=== PATIENT | female | born 2000 | race Two or more races ===

== ENCOUNTER 2024-10-14 08:53 | Inpatient (IN) | payer OTHER ==
[~2024-10-14] VITALS: Ht 177.8 cm; Wt 84.4 kg
--- NOTE | 2024-10-14 09:40 | NUR ---
PACIENTE ALERTA Y ORIENTADA X3 LA MISMA REFIERE DOLOR ABDOMINAL YA QUE KATYA REFIERE TENER BHAVYA HERNIA ABDOMINAL. S/V ESTABLES AL MOMENTO. PACIENTE EN ESPERA DE EVALUACION MEDICA.
[2024-10-14] MEDS ORDERED: 0.9 % SODIUM CHLORIDE 1,000 ML IV ONE (12:00)
--- NOTE | 2024-10-14 13:06 | NUR ---
SOUMYA ROJAS EDUCA ACERCA DE TX ORDENADO Y REFIERE ENTENDER. SE CANALIZA Y COLECTAN MUESTRAS DE LABORATORIO MEDIANTE MEDIDAS ASEPTICAS.
[2024-10-14 13:12] LABS: BASO % 0.5 % (0.1-1.2); EOS # 0.13 (0.04-0.54); EOS % 2.4 % (0.7-7.0); LYMPH # 1.47 (1.18-3.74); LYMPH % 26.8 % (19.3-53.1); MEAN PLATELET VOLUME 10.30 fl (9.4-12.4); MONO # 0.39 (0.24-0.82); MONO % 7.1 % (4.7-12.5); NEUT # 3.45 (1.56-6.13); NEUT % 63.0 % (34.0-71.1); RED CELL DISTRIBUTION WIDTH 16.8 % (11.6-14.4)
[2024-10-14 13:30] LABS: INR 1.13
[2024-10-14 13:35] LABS: ALT/SGPT 15.0 U/L (12-78); AST/SGOT 14.0 U/L (15-37); BILIRUBIN TOTAL 0.3 mg/dL (0.3-1.2); BUN CREA RATIO 9.0 (7.0-25.0); CREATININE SERUM 0.74 mg/dL (0.55-1.02); GFR 96.42; GLOBULINA 5.1 G/DL (2.4-3.5); GLUCOSE FASTING 92.0 mg/dL (65-100); OSMOLALITY SERUM 275.0 MOSM/KG (275-295)
[2024-10-14 13:42] LABS: URINE APPEARANCE Clear; URINE BILIRRUBIN Negative (NEGATIVE); URINE BLOOD Negative; URINE COLOR Yellow; URINE GLUCOSE Negative (NEGATIVE); URINE KETONE Negative (NEGATIVE); URINE LEUKOCYTE Moderate; URINE NITRATE Negative; URINE PROTEIN Negative (NEGATIVE); URINE UROBILINOGEN 0.2 E.U./dl
[2024-10-14 13:46] LABS: URINE BACTERIA 174.0 uL (0.0-1933); URINE EPITHELIAL CELLS 11.8 uL (0.0-38.8); URINE RBC 8.6 uL (0.0-20.8); URINE WBC 199.6 uL (0.0-23.2)
[2024-10-14 13:48] LABS: URINE CAST 0.00 uL (0.0-1.40)
[2024-10-14] MEDS ORDERED: ACETAMINOPHEN 500 MG GEL..CAP PO PRN (17:45)
[2024-10-14] MEDS ORDERED: 0.9 % SODIUM CHLORIDE 1,000 ML IV SCH (17:45)
[2024-10-14] MEDS ORDERED: FAMOTIDINE/PF 20 MG in 0.9 % SODIUM CHLORIDE 8 ML IV PUSH SCH (21:00)
[2024-10-14 21:41] VITALS: BP 122/80
[2024-10-14 23:46] VITALS: BP 107/71
[2024-10-15 05:04] VITALS: BP 107/69
[2024-10-15 08:27] VITALS: BP 102/66
[2024-10-15] MEDS ORDERED: ENOXAPARIN SODIUM 40 MG/0.4 ML SYRINGE SUBCUTANEO SCH (09:00)
[2024-10-15 11:54] LABS: BASO % 0.3 % (0.1-1.2); EOS # 0.13 (0.04-0.54); EOS % 2.1 % (0.7-7.0); LYMPH # 1.47 (1.18-3.74); LYMPH % 23.6 % (19.3-53.1); MEAN PLATELET VOLUME 9.40 fl (9.4-12.4); MONO # 0.57 (0.24-0.82); MONO % 9.2 % (4.7-12.5); NEUT # 4.02 (1.56-6.13); NEUT % 64.6 % (34.0-71.1); RED CELL DISTRIBUTION WIDTH 17.2 % (11.6-14.4)
[2024-10-15 16:00] VITALS: BP 96/66
[2024-10-16 00:21] VITALS: BP 130/80
[2024-10-16 01:25] VITALS: BP 123/80
[2024-10-16 03:22] LABS: BASO % 0.6 % (0.1-1.2); EOS # 0.16 (0.04-0.54); EOS % 2.5 % (0.7-7.0); LYMPH # 1.89 (1.18-3.74); LYMPH % 29.5 % (19.3-53.1); MEAN PLATELET VOLUME 10.30 fl (9.4-12.4); MONO # 0.55 (0.24-0.82); MONO % 8.6 % (4.7-12.5); NEUT # 3.74 (1.56-6.13); NEUT % 58.5 % (34.0-71.1); RED CELL DISTRIBUTION WIDTH 16.7 % (11.6-14.4)
[2024-10-16 08:45] VITALS: BP 107/71
[2024-10-16] MEDS ORDERED: THROMBIN,HU/FIBRINOGEN/CALCIUM 10 ML SYRINGE TOP ONE (14:30)
[2024-10-16] MEDS ORDERED: METRONIDAZOLE/SODIUM CHLORIDE 500 MG/100 ML PIGGYBACK IV ONE (14:30)
[2024-10-16] MEDS ORDERED: CEFAZOLIN SODIUM 1,000 MG VIAL IV ONE (14:30)
[2024-10-16] MEDS ORDERED: RINGERS SOLUTION,LACTATED 1,000 ML IV SCH (16:30)
[2024-10-16] MEDS ORDERED: MORPHINE SULFATE 4 MG/ML CARTRIDGE IV PRN (16:30)
[2024-10-16] MEDS ORDERED: KETOROLAC TROMETHAMINE 30 MG VIAL IV ONE (16:30)
[2024-10-16] MEDS ORDERED: OxyCODONE HCL 5 MG TABLET (ROXICODONE) PO PRN (16:30)
[2024-10-16] MEDS ORDERED: SIMETHICONE 125 MG CAPSULE PO SCH (17:00)
[2024-10-16] MEDS ORDERED: CEFAZOLIN SODIUM 1,000 MG VIAL IV SCH (17:00)
[2024-10-16] MEDS ORDERED: METOCLOPRAMIDE HCL 5 MG/ML VIAL IV SCH (17:00)
[2024-10-16] MEDS ORDERED: SUGAMMADEX SODIUM 200 MG/2 ML VIAL IV ONE (17:30)
[2024-10-16] MEDS ORDERED: MORPHINE SULFATE 4 MG/ML VIAL IV ONE (17:55)
[2024-10-16] MEDS ORDERED: ONDANSETRON HCL 2 MG/ML VIAL IV ONE (18:00)
[2024-10-16] MEDS ORDERED: KETOROLAC TROMETHAMINE 30 MG VIAL IM SCH (18:00)
[2024-10-16] MEDS ORDERED: ACETAMINOPHEN 500 MG GEL..CAP PO SCH (18:00)
[2024-10-16 19:05] VITALS: BP 102/63
[2024-10-16 19:07] LABS: BASO % 0.2 % (0.1-1.2); EOS # 0.01 (0.04-0.54); EOS % 0.1 % (0.7-7.0); LYMPH # 0.89 (1.18-3.74); LYMPH % 8.5 % (19.3-53.1); MEAN PLATELET VOLUME 9.50 fl (9.4-12.4); MONO # 0.58 (0.24-0.82); MONO % 5.6 % (4.7-12.5); NEUT # 8.90 (1.56-6.13); NEUT % 85.4 % (34.0-71.1); RED CELL DISTRIBUTION WIDTH 17.3 % (11.6-14.4)
[2024-10-16 19:30] LABS: BUN CREA RATIO 9.0 (7.0-25.0); CREATININE SERUM 0.79 mg/dL (0.55-1.02); GFR 89.41; GLUCOSE FASTING 127.0 mg/dL (65-100); OSMOLALITY SERUM 281.0 MOSM/KG (275-295)
[2024-10-16] MEDS ORDERED: GABAPENTIN 300 MG CAPSULE PO SCH (21:00)
[2024-10-16] MEDS ORDERED: DOCUSATE SODIUM 100MG CAP PO SCH ×2 (21:00)
[2024-10-16] MEDS ORDERED: FAMOTIDINE/PF 20 MG/2 ML VIAL IV PUSH SCH (21:00)
[2024-10-17] MEDS ORDERED: KETOROLAC TROMETHAMINE 30 MG VIAL IV SCH (01:00)
[2024-10-17 02:25] VITALS: BP 108/71; O2SAT 99
[2024-10-17 07:30] LABS: BASO % 0.2 % (0.1-1.2); EOS # 0.02 (0.04-0.54); EOS % 0.3 % (0.7-7.0); LYMPH # 1.09 (1.18-3.74); LYMPH % 17.7 % (19.3-53.1); MEAN PLATELET VOLUME 10.30 fl (9.4-12.4); MONO # 0.56 (0.24-0.82); MONO % 9.1 % (4.7-12.5); NEUT # 4.45 (1.56-6.13); NEUT % 72.4 % (34.0-71.1); RED CELL DISTRIBUTION WIDTH 17.4 % (11.6-14.4)
[2024-10-17 07:55] LABS: BUN CREA RATIO 8.0 (7.0-25.0); CREATININE SERUM 0.71 mg/dL (0.55-1.02); GFR 101.13; GLUCOSE FASTING 92.0 mg/dL (65-100); OSMOLALITY SERUM 279.0 MOSM/KG (275-295)
[2024-10-17 08:22] VITALS: BP 109/70; O2SAT 98
[2024-10-17] MEDS ORDERED: ENOXAPARIN SODIUM 40 MG/0.4 ML SYRINGE SUBCUTANEO SCH (09:00)
[2024-10-17] MEDS ORDERED: SOD FERRIC GLUC COMPLX/SUCROSE 62.5 MG in 0.9 % SODIUM CHLORIDE 50 ML IV SCH (12:00)
[2024-10-17] MEDS ORDERED: FOLIC ACID 1 MG TABLET PO NR (13:00)
[2024-10-17] MEDS ORDERED: IRON FUM,PS/FOLIC/BCOMP,C NO.9 1 CAP CAPSULE PO NR (13:00)
[2024-10-17 13:02] VITALS: BP 111/67
[2024-10-17 17:35] VITALS: BP 111/70; O2SAT 98
[2024-10-18 00:41] VITALS: BP 100/63
[2024-10-18 08:23] VITALS: BP 112/72; O2SAT 98
[2024-10-18] MEDS ORDERED: FOLIC ACID 1 MG TABLET PO SCH (09:00)
[2024-10-18] MEDS ORDERED: IRON FUM,PS/FOLIC/BCOMP,C NO.9 1 CAP CAPSULE PO SCH (09:00)
[2024-10-18 11:13] LABS: BASO % 0.4 % (0.1-1.2); EOS # 0.17 (0.04-0.54); EOS % 2.5 % (0.7-7.0); LYMPH # 1.14 (1.18-3.74); LYMPH % 16.9 % (19.3-53.1); MEAN PLATELET VOLUME 10.00 fl (9.4-12.4); MONO # 0.61 (0.24-0.82); MONO % 9.1 % (4.7-12.5); NEUT # 4.77 (1.56-6.13); NEUT % 70.8 % (34.0-71.1); RED CELL DISTRIBUTION WIDTH 17.7 % (11.6-14.4)
[2024-10-18 12:30] VITALS: BP 113/66
[2024-10-18 16:46] VITALS: BP 118/79; O2SAT 99
[2024-10-18] MEDS ORDERED: CELECOXIB 200 MG CAPSULE PO SCH (17:00)
[2024-10-18] MEDS ORDERED: KETOROLAC TROMETHAMINE 30 MG VIAL IV ONE (21:00)
[2024-10-19 01:00] VITALS: BP 110/69; O2SAT 98
[2024-10-19 08:00] VITALS: BP 104/67
[2024-10-19] MEDS ORDERED: TRAMADOL HCL 50 MG TABLET PO SCH (09:15)
[2024-10-19] MEDS ORDERED: KETOROLAC TROMETHAMINE 30 MG VIAL IU SCH (09:15)
[2024-10-19 16:36] VITALS: BP 131/80
[2024-10-19] MEDS ORDERED: KETOROLAC TROMETHAMINE 30 MG VIAL IV SCH (17:00)
[2024-10-19 23:31] VITALS: BP 104/68; O2SAT 99
[2024-10-20 08:49] VITALS: BP 108/72
== END 2024-10-20 13:24 | disposition home or self-care (01) | DRG 983 ==
LOC: ER 08:53 → OB/GYN 18:11
PROVIDERS: Obstetrics & Gynecology; Obstetrics & Gynecology Gynecologic Oncology; Preventive Medicine Public Health & General Preventive Medicine; ADMIT Internal Medicine; ATTEND Internal Medicine
PROC: 30233N1 Transfusion of Nonautologous Red Blood Cells into Peripheral Vein, Percutaneous Approach (ICD-10-PCS; 2024-10-15)
PROC: 0UT60ZZ Resection of Left Fallopian Tube, Open Approach (ICD-10-PCS; 2024-10-16)
PROC: 0UT10ZZ Resection of Left Ovary, Open Approach (ICD-10-PCS; 2024-10-16)
PROC: 07BC0ZZ Excision of Pelvis Lymphatic, Open Approach (ICD-10-PCS; 2024-10-16)
PROC: 0DBW0ZZ Excision of Peritoneum, Open Approach (ICD-10-PCS; 2024-10-16)
PROC: 07BD0ZZ Excision of Aortic Lymphatic, Open Approach (ICD-10-PCS; 2024-10-16)
PROC: 0DBU4ZZ Excision of Omentum, Percutaneous Endoscopic Approach (ICD-10-PCS; 2024-10-16)
PROC: 3E1M38Z Irrigation of Peritoneal Cavity using Irrigating Substance, Percutaneous Approach (ICD-10-PCS; 2024-10-16)
PROC: 0UT90ZZ Resection of Uterus, Open Approach (ICD-10-PCS; principal; 2024-10-16 12:00)
DX: D49.59 Neoplasm of unspecified behavior of other genitourinary organ (principal); D49.0 Neoplasm of unspecified behavior of digestive system; R10.9 Unspecified abdominal pain; D64.9 Anemia, unspecified